=== PATIENT | female | born 1985 | race Caucasian/White ===

== ENCOUNTER → 2019-05-01 12:31 | Outpatient (CLI) | payer OTHER ==
[~2019-05-01 12:31] MED LIST: ALBUTEROL; KENALOG-40; KETOROLAC60 MG/2 M1; LYRICA50 MG; NORFLEX 30MG30 MG/ML; PRENATABS FA T1 EACH PO; PRENATALES; [UNRECOGNIZED DRUG - OTHER]
== END | disposition home or self-care (01) ==
LOC: LAB 12:31
DX: J20.8 Acute bronchitis due to other specified organisms (principal)